=== PATIENT | male | born 1950 | race Caucasian/White ===

== ENCOUNTER 2019-03-13 01:23 | Inpatient (IN) | payer OTHER, MEDICAID ==
[~2019-03-13] VITALS: Ht 177.8 cm; Wt 70.5 kg
--- NOTE | 2019-03-13 00:40 | NUR ---
ADMIT NOTE Patient received from EMT Autumn, [facility] via gurney. No s/s of acute distress noted. Breathing even and unlabored. Patient does complain of 10/10 lower back pain, informed patient will inform MD. Skin warm and dry to touch, no s/s of hypoglycemia noted. Patient's at bedside, Kelly. Patient oriented to room, educated on proper use of call light, patient verbalized understanding and demonstrated back proper use. Bed alarm on. Bed is locked and at lowest position. Will continue to monitor.
[2019-03-13] MEDS ORDERED: MORPHINE 2 MG/ML INJ. SYRINGE IVP PRN (01:30)
[2019-03-13] MEDS ORDERED: FLEETMO RC (01:54)
[2019-03-13] MEDS ORDERED: BISA5TAB10 PO (01:54)
[2019-03-13] MEDS ORDERED: NUT.237L30 PO (01:54)
[2019-03-13] MEDS ORDERED: PHEN57OI23 RC (01:54)
[2019-03-13] MEDS ORDERED: TAMS-11 PO (01:54)
[2019-03-13] MEDS ORDERED: CALC1CAP19 PO (01:54)
[2019-03-13] MEDS ORDERED: TRAM-350 PO (01:54)
[2019-03-13] MEDS ORDERED: GABA300S PO (01:54)
[2019-03-13] MEDS ORDERED: POLY119P15 PO (01:54)
[2019-03-13] MEDS ORDERED: FINA5TAB3 PO (01:54)
[2019-03-13] MEDS ORDERED: MULT-1189 PO (01:54)
[2019-03-13 01:59] VITALS: BP_SYST 141
[2019-03-13] MEDS ORDERED: TRAMADOL HCL PO SCH (02:00)
[2019-03-13] MEDS ORDERED: PHENYLEPH/MINERAL OIL/PETROLAT 45 GM OINT.APPL RC PRN (02:00)
[2019-03-13] MEDS ORDERED: ACETAMINOPHEN PO SCH (02:00)
[2019-03-13] MEDS ORDERED: MINERAL OIL 133 ML ENEMA RC PRN (02:00)
[2019-03-13] MEDS ORDERED: [UNRECOGNIZED DRUG - OTHER] PO SCH (02:00)
[2019-03-13] MEDS: MORPHINE 2 MG/ML INJ. SYRINGE IVP PRN ×2 (02:43→23:16)
--- NOTE | 2019-03-13 02:43 | NUR ---
PAIN Patient complaints of lower back pain with the pain scale of 6/10. Morphine 1mg given through IVP. Patient tolerated well. No signs of respiratory distress noted. Will re assess and continue to monitor.
[2019-03-13] MEDS: D5/0.45 NS 1,000 ML IV SCH ×2 (02:44→21:31)
--- NOTE | 2019-03-13 04:53 | NUR ---
RN ROUNDS Patient is asleep. Family at the bedside. No signs of respiratory distress. Breathing even and unlabored. No signs of discomfort noted. IVF infusing well. Safety precautions in place. Will continue to monitor
[2019-03-13] MEDS: INSULIN REGULAR, HUMAN 100 UNITS/ML, 10 ML VIAL (humuLIN R) SUBCUT PRN ×3 (05:58→17:46)
[2019-03-13 06:33] LABS: MEAN CORPUSCULAR HGB CONC 34 % (32-36)
[2019-03-13 06:44] LABS: INR 0.9 (0.80-1.20); PROTHROMBIN TIME 9.3 SECS (9.5-12.5)
--- NOTE | 2019-03-13 06:51 | NUR ---
CLOSING NOTES Patient is asleep family at the bedside. Patient has no signs of respiratory distress. Breathing even and unlabored. IVF infusing well, patency noted. All needs met throughout the shift. Bed locked and in lowest position. Alarm on. Will endorse to oncoming nurse for continuity of care.
[2019-03-13 07:02] LABS: ALBUMIN 2.4 g/dL (3.4-4.8); CALCIUM 9.2 mg/dL (8.4-11.0); CREATININE 0.64 mg/dL (0.55-1.30); POTASSIUM 4.4 mmol/L (3.5-5.1); TOTAL BILIRUBIN 0.3 mg/dL (0.0-1.0)
--- NOTE | 2019-03-13 07:30 | NUR ---
opening note patient is resting in bed, alert and oriented, visitor at the bedside, educated match up person light system and plan of care, patient verbalized understanding, IV fluids running, tolerating well, fall/safety precautions in place.
[2019-03-13 07:35] LABS: HEMATOCRIT 37.7 % (36-54); HEMOGLOBIN 12.7 g/dL (14.0-18.0); MEAN CORPUSCULAR HEMOGLOBIN 31 pg (27-31); MEAN CORPUSCULAR VOLUME 92 fL (79.0-98.0); PLATELET COUNT (AUTO) 320 K/uL (130-430); RED BLOOD CELL COUNT(AUTO) 4.11 MIL/uL (4.2-6.2); RED CELL DISTRIBUTION WIDTH 15.8 % (9.0-15.0); WHITE BLOOD COUNT (AUTO) 5.9 K/uL (4.8-10.8)
[2019-03-13 08:00] VITALS: BP_SYST 113
[2019-03-13] MEDS ORDERED: NUT TX GLUC INTOLER LAC FR SOY PO SCH (08:00)
[2019-03-13] MEDS ORDERED: FINASTERIDE 5 MG TABLET (PROSCAR) PO SCH (09:00)
[2019-03-13] MEDS ORDERED: CALCIUM CARBONATE/VITAMIN D3 1 TAB TABLET PO SCH (09:00)
[2019-03-13] MEDS ORDERED: POLYETHYLENE GLYCOL 3350, 17 GM/ POWD.PACK PO SCH (09:00)
[2019-03-13] MEDS ORDERED: TAMSULOSIN HCL 0.4 MG CAP PO SCH (09:00)
[2019-03-13] MEDS ORDERED: MULTIVITS,CA,MINERALS/IRON/FA 1 TABLET PO SCH (09:00)
--- NOTE | 2019-03-13 09:40 | NUR ---
medications patient is resting in bed, visitor at the bedside, educated on medication uses and side effects, patient verbalized understanding, and tolerated well, no other needs at this time, fall/safety precautions in place, IV fluids running.
[2019-03-13] MEDS: GABAPENTIN 300 MG CAPSULE PO SCH ×3 (09:41→21:27)
[2019-03-13] MEDS: VANCOMYCIN HCL 1,000 MG in NS 250 ML IV SCH ×2 (11:30→21:30)
--- NOTE | 2019-03-13 11:30 | NUR ---
blood sugar check patient is resting in bed, family in the room, accuchek done and sliding scale needed per MD order, educated on medication uses and side effects, patient verbalized understanding and tolerated well, no other needs at this time, fall/safety precautions in place.
[2019-03-13 11:40] LABS: BASOPHILS % (MANUAL) 0 % (0-2); EOSINOPHILS % (MANUAL) 3 % (0-7); LYMPHOCYTES % (MANUAL) 19 % (20-46); MONOCYTES % (MANUAL) 11 % (0-11)
[2019-03-13 12:30] VITALS: BP_SYST 126
--- NOTE | 2019-03-13 13:31 | NUR ---
ROUNDS patient is resting in bed, eyes closed breathing easy and nonlabored, family in the room, IV fluids running, no other needs addressed at this time, fall/safety precautions in place.
--- NOTE | 2019-03-13 14:23 | NUR ---
scheduled gabapentin educated patient on medication use and side effects, patient verbalized understanding and tolerated well, visitor at the bedside, no other needs at this time, fall/safety precautions in place, IV fluids running.
--- NOTE | 2019-03-13 15:46 | NUR ---
NEURO CONSULT SPOKE TO Realeyes RAYSA WILL NOTIFY DR KENNY FOR NEURO CONSULT.
[2019-03-13] MEDS ORDERED: AMPICILLIN SODIUM 2 GM in NS 100 ML IV ONE (16:00)
--- NOTE | 2019-03-13 16:27 | NUR ---
DC Planning:Informed dr. Damon via phone : there is no MRI service during weekend at [facility]. The md confirmed that the MRI of lumbar sacra spine r/o lumbar epidural abscess can be done on Friday. no need to transfer to higher level of care.-- Kyleigh made aware.
--- NOTE | 2019-03-13 16:32 | NUR ---
ampicillin educated patient on medication use and side effects, patient verbalized understanding and tolerated well, visitor at the bedside, no other needs at this time, fall/safety precautions in place, IV fluids running.
--- NOTE | 2019-03-13 16:40 | NUR ---
patient off unit for CT scan.
--- NOTE | 2019-03-13 17:10 | NUR ---
patient back on unit from CT, in stable condition.
[2019-03-13 17:24] VITALS: BP_SYST 110
--- NOTE | 2019-03-13 18:39 | NUR ---
Paged Dr. Ordonez, Salvador s/w Maggie.
--- NOTE | 2019-03-13 18:58 | NUR ---
closing note patient is resting in bed, alert and oriented, visitor at the bedside, IV fluids running, tolerating well, fall/safety precautions in place, I spoke to Dr Ordonez about the CT results and he wants the patient to get MRI as soon as possible, I let him know that Dr Damon said patient can wait until Friday for it, Dr Ordonez still wants the MRI to be done before MRI and let Dr Damon know about it, Dr Damon had left already, he has been paged to let him know about what Dr Ordonez wants.
--- NOTE | 2019-03-13 19:01 | NUR ---
Paged Dr. Damon, s/w Magdalena
--- NOTE | 2019-03-13 19:40 | NUR ---
Opening Note Received patient awake, resting in bed, no s/sx of distress. Nonlabored breathing on room air. He is eating his dinner and family is visiting at bedside. IVF infusing via RFA IV. Bed is locked in lowest position, side rails up 2x, and bed alarm on. Call light is w/in reach.
--- NOTE | 2019-03-13 19:48 | NUR ---
Dr. Damon S/W Dr. Damon and notified that [facility]'s MRI is not working and will not transfer patient there. He placed order for transfer to [facility] with same orders: he is admitting, patient will be direct admit, m/s.
[2019-03-13 20:00] VITALS: BP_SYST 114
[2019-03-13 20:10] VITALS: BP_SYST 130
[2019-03-13] MEDS ORDERED: BISACODYL 5 MG TABLET.DR (DULCOLAX) PO SCH (21:00)
[2019-03-13] MEDS ORDERED: TERBINAFINE HCL 1%, 24 GM antifungal CREAM TP SCH (21:00)
--- NOTE | 2019-03-13 21:30 | NUR ---
Medications Due medications given. Antibiotic administered as ordered, infusing well and patient tolerating.
--- NOTE | 2019-03-13 22:26 | NUR ---
CALLED : PER LETTER SORTING MACHINE OPERATOR ANAM'S REQUEST DR POLLACK CALLED AND INFORMED HIM THAT PER [facility] LETTER SORTING MACHINE OPERATOR [facility] IS LOOKING FOR AN ADMITTING DR . EVEN THOUGH INFORMED H.S THAT BERNIE KAUR IS ADMITTING PT OVER THERE . REQUESTED MD TO CALL THE LETTER SORTING MACHINE OPERATOR AT [facility] AND NOTIFY THAT HE WILL BE THE ADMITTING DR FOR THIS PT .
--- NOTE | 2019-03-13 22:43 | NUR ---
APPLIANCE LINE ASSEMBLER CALLED AND INFORMED THAT PT WILL BE GOING TO 506 , MED SURG , REPORT TO CALL AT [phone]. NOTIFIED PRIMARY RN .
--- NOTE | 2019-03-13 22:59 | NUR ---
Called [facility] Ambulance dialed [phone], s/w Meryl. ETA [id number]
--- NOTE | 2019-03-13 23:16 | NUR ---
c/o pain Patient reported moderate pain to back and was given morphine for moderate pain as ordered. Will monitor.
--- NOTE | 2019-03-13 23:25 | NUR ---
Called Report to [facility], , and gave SBAR report to GURVINDER Eagle.
--- NOTE | 2019-03-13 23:42 | NUR ---
Report to ambulance / Picture toe [facility] here for patient, report given. Picture of right 4th toe taken.
--- NOTE | 2019-03-13 23:55 | NUR ---
Discharge D/C Patient Ambulance given copy of records,medication reconciliation form and D/C instructions. Exit Care provided. Patient aware of transfer and verbalized understanding. MD discussed with patient the results and treatment provided. Taken by yair for transfer to [facility]. Patient in stable condition, ID band removed. IV catheter saline locked. Patient educated on pain management. All belongings sent with patient. accompanied patient and will travel with patient and crew in ambulance.
[2019-03-14] MEDS ORDERED: AMPICILLIN SODIUM 2 GM in NS 100 ML IV SCH ×2
== END 2019-03-13 23:55 | disposition short-term general hospital (02) | DRG 637 ==
LOC: SMU 01:23
PROVIDERS: ADMIT Internal Medicine; ATTEND Internal Medicine
DX: E11.69 Type 2 diabetes mellitus with other specified complication (principal); E43 Unspecified severe protein-calorie malnutrition; M46.26 Osteomyelitis of vertebra, lumbar region; G95.9 Disease of spinal cord, unspecified; G06.2 Extradural and subdural abscess, unspecified; N40.0 Benign prostatic hyperplasia without lower urinary tract symptoms; M21.372 Foot drop, left foot; G54.1 Lumbosacral plexus disorders; Z79.899 Other long term (current) drug therapy; Z86.61 Personal history of infections of the central nervous system
CPT/HCPCS: 36415; 70450-TC; 72131; 80053; 82962; 85007; 85027; 85610-TC; 85730-TC; 87040-TC; 87081; J0290; J2270; J3370; J7050

== ENCOUNTER 2019-05-30 20:54 | Inpatient (IN) | payer OTHER, MEDICAID ==
[~2019-05-30] VITALS: Ht 177.8 cm; Wt 74.4 kg
[~2019-05-30 20:54] MED LIST: BISA5TAB10 PO; CALC1CAP19 PO; FINA5TAB3 PO; FLEETMO RC; GABA300S PO; MULT-1189 PO; NUT.237L30 PO; PHEN57OI23 RC; POLY119P15 PO; TAMS-11 PO; TRAM-350 PO
--- NOTE | 2019-05-30 20:54 | NUR ---
Placed in room 03 . Placed on manager monitoring, blood pressure machine and pulse oximeter. To gown for exam. Side rails up.
[2019-05-30 21:10] VITALS: BP_SYST 151
--- NOTE | 2019-05-30 21:20 | NUR ---
ANUJ BLS from [facility] in [place] for uncontrolled tremors since 0 this AM. Ativan was given at facility for relief of symptoms, but tremors return. History of seizure disorder, DM2, osteomyelitis, depression, BPH, intraspinal abscess, and strep. Denies pain at this time. Patient is actively having mild tremors. Seizure pads placed with both side rails up for safety, and patient placed on BP cuff, case monitor, and pulse oximetry. Even chest rise and fall with respirations. No acute distress noted. Will continue to monitor.
--- NOTE | 2019-05-30 23:11 | NUR ---
ER Dr. Rolle at bedside examining patient.
[2019-05-30] MEDS ORDERED: NACL 0.9% 1,000 ML IV ONE (23:30)
[2019-05-30] MEDS ORDERED: LORazepam 2 MG/ML VIAL IVP ONE (23:30)
--- NOTE | 2019-05-30 23:30 | NUR ---
# 18 gauge angiocath placed to RAC. Use of asceptic technique. Opsite placed over site. Blood return noted. Blood for lab drawn from site. Flushed with 10 cc of normal saline. No evidence of infiltration noted. Patient tolerated well.
[2019-05-30 23:43] LABS: BASOPHILS # (AUTO) 0.1 K/uL (0.0-0.2); BASOPHILS % (AUTO) 1.5 % (0.0-2.0); EOSINOPHILS # (AUTO) 0.1 K/uL (0.0-0.4); EOSINOPHILS % (AUTO) 1.6 % (0.0-4.0); HEMOGLOBIN 14.2 g/dL (14.0-18.0); LYMPHOCYTES # (AUTO) 1.5 K/uL (1.0-5.5); LYMPHOCYTES % (AUTO) 35.2 % (20.5-51.5); MEAN CORPUSCULAR HEMOGLOBIN 30 pg (27-31); MEAN CORPUSCULAR HGB CONC 34 % (32-36); MEAN CORPUSCULAR VOLUME 87 fL (79.0-98.0); MONOCYTES # (AUTO) 0.4 K/uL (0.0-1.0); MONOCYTES % (AUTO) 10.3 % (1.7-9.3); NEUTROPHILS # (AUTO) 2.1 K/uL (1.8-7.7); NEUTROPHILS % (AUTO) 51.4 % (40.0-70.0); PLATELET COUNT (AUTO) 225 K/uL (130-430); RED BLOOD CELL COUNT(AUTO) 4.83 MIL/uL (4.2-6.2); RED CELL DISTRIBUTION WIDTH 15.9 % (9.0-15.0); WHITE BLOOD COUNT (AUTO) 4.1 K/uL (4.8-10.8)
--- NOTE | 2019-05-30 23:45 | NUR ---
No seizure activity noted or reported, VSS, no further tremors noted s/p administration of ativan.
--- NOTE | 2019-05-30 23:50 | NUR ---
# 16 FR Merino catheter with use of sterile technique. Immediate return of 400 cc clear yellow urine noted. Bedside drainage bag placed below level of bladder. Urine sample collected and sent to lab. Pt tolerated procedure well. Patient unable to ambulate or toilet self.
--- NOTE | 2019-05-31 | NUR ---
Pt resting quietly, even and non-labored respirations, VSS, NAD. Family member at bedside.
[2019-05-31 00:06] LABS: CREATININE 0.83 mg/dL (0.55-1.30); POTASSIUM 4.2 mmol/L (3.5-5.1); TOTAL BILIRUBIN 0.3 mg/dL (0.0-1.0)
--- NOTE | 2019-05-31 00:10 | NUR ---
Pt to radiology via stretcher.
[2019-05-31 00:18] LABS: BILIRUBIN,URINE NEGATIVE (NEGATIVE); BLOOD, URINE 1+ (NEGATIVE); CLARITY/URINE CLEAR (CLEAR); COLOR,URINE YELLOW (YELLOW); GLUCOSE,URINE 3+ (NEGATIVE); KETONES,URINE NEGATIVE (NEGATIVE); LEUKOCYTE ESTERASE ,URINE NEGATIVE (NEGATIVE); NITRITE, URINE NEGATIVE (NEGATIVE); PROTEIN URINE NEGATIVE (NEGATIVE); UROBILINOGEN,URINE 0.2 (0.2-1.0)
[2019-05-31 00:23] LABS: BACTERIA,URINE FEW /HPF (None Seen); WBC,URINE 0-3 /HPF (0-3)
--- NOTE | 2019-05-31 02:00 | NUR ---
Pt resting quietly, even and non-labored respirations, VSS, NAD. Family member at bedside. No needs verbalized at this time.
[2019-05-31] MEDS ORDERED: ASCO500T20 PO (02:28)
[2019-05-31] MEDS ORDERED: GABA-531 PO (02:29)
[2019-05-31] MEDS ORDERED: NUT.237L30 PO (02:30)
[2019-05-31] MEDS ORDERED: INSU100V9 SQ (02:31)
[2019-05-31] MEDS ORDERED: INSU100V7 SUBCUT (02:38)
[2019-05-31] MEDS ORDERED: AZITHROMYCIN 500 MG in NS 250 ML IV ONE (04:00)
[2019-05-31] MEDS ORDERED: NACL 0.9% 1,000 ML IV ONE (04:00)
[2019-05-31] MEDS ORDERED: cefTRIAXone 1 GM in D5W 50 ML IV ONE (04:00)
--- NOTE | 2019-05-31 04:00 | NUR ---
Pt resting quietly, even and non-labored respirations, VSS, NAD. Family member at bedside. No needs verbalized at this time.
[2019-05-31] MEDS ORDERED: AZITHROMYCIN 500 MG/VIAL (ZITHROMAX) IV ONE (04:25)
[2019-05-31] MEDS ORDERED: cefTRIAXone 1 GM VIAL ONE (04:25)
--- NOTE | 2019-05-31 04:34 | NUR ---
Patient will be admitted to care of Barb Stone. Admitted to Med/Surg unit. Will go to room 134B. Belongings list completed. Complete and up to date summary report printed. SBAR report to be given at bedside with opportunity for questions.
--- NOTE | 2019-05-31 04:43 | NUR ---
Specimen for MRSA collected and sent to lab.
--- NOTE | 2019-05-31 04:50 | NUR ---
Admission Note Received patient from ER with diagnosis of possible seizure and to rule out spinal infection. Initial Plan of Care discussed-patient verbalized understanding. Family at bedside. Oriented to room, call light, pain management and safety.
[2019-05-31 05:01] VITALS: BP_SYST 144
--- NOTE | 2019-05-31 06:13 | NUR ---
CONSULT CONSULT CALLED FOR Malina CARLOS I SPOKE WITH SAMI TABARES REASON FOR CONSULT: SPINAL ABSCESS REQUESTING CONSULT: DR. LISA ROBERT
[2019-05-31] MEDS: LORazepam 2 MG/ML VIAL IVP SCH ×4 (06:18→21:10)
[2019-05-31 08:00] VITALS: BP_SYST 153
--- NOTE | 2019-05-31 08:00 | NUR ---
OPENING NOTES Received pt. in bed, no signs of acute respiratory distress observed, no sob. Vitals wnl. no fever. Safety precaution in place. Side rails padded. Call light within reach, bed alarm on, bed at lowest position. Encouraged pt and family at bedside to call for assist and pain meds or any concerns. Will continue to monitor.
--- NOTE | 2019-05-31 11:00 | NUR ---
pt in bed, resting, eyes close. no sob, no resp distress. family at bedside.
[2019-05-31 11:13] VITALS: BP_SYST 132
--- NOTE | 2019-05-31 12:06 | NUR ---
pt given noon time medication. pt's family at bedside. no sob, no distress. no s/s seizures. will cont to monitor.
[2019-05-31 15:11] VITALS: BP_SYST 145
--- NOTE | 2019-05-31 17:52 | NUR ---
pt ambulated to the bathroom assisted by .
--- NOTE | 2019-05-31 18:12 | NUR ---
dr recinos here, seen and spoke with pt and family at bedside. yohannes black assisted with translation.
[2019-05-31 19:00] VITALS: BP_SYST 125
[2019-05-31] MEDS ORDERED: BISACODYL 5 MG TABLET.DR (DULCOLAX) PO PRN (19:00)
[2019-05-31 20:00] VITALS: BP_SYST 135
--- NOTE | 2019-05-31 20:03 | NUR ---
closing notes, endorsed to night nurse, pt has been stable the whole shift, no s/o pain, no seizure. endorsed to night rn that iv access is now leaking and pt needs new iv access.
[2019-05-31] MEDS: GABAPENTIN 300 MG CAPSULE PO SCH (21:10)
[2019-06-01] VITALS: BP_SYST 130
--- NOTE | 2019-06-01 03:32 | NUR ---
Consultation Paged Reason for Consultation: DISKITIS Was consult called: Y Person who was notified: Jessie Consulting Physician: Salvador Rice Strategic Accounts Manager Ordering Physician: Dr. aDmon Face sheet was faxed to [phone]
--- NOTE | 2019-06-01 03:36 | NUR ---
Consultation Paged Reason for Consultation: Jaiden Was consult called: Y Person who was notified: Jessie Consulting Physician: Sai Goetz Government Affairs Director Ordering Physician: Dr. Damon
[2019-06-01 04:00] VITALS: BP_SYST 139
[2019-06-01] MEDS: LORazepam 2 MG/ML VIAL IVP SCH ×4 (06:59→21:32)
[2019-06-01 07:55] VITALS: BP_SYST 129
[2019-06-01] MEDS: TAMSULOSIN HCL 0.4 MG CAP PO SCH (08:37)
[2019-06-01] MEDS: ASCORBIC ACID 500 MG TABLET PO SCH (08:37)
[2019-06-01] MEDS: FINASTERIDE 5 MG TABLET (PROSCAR) PO SCH (08:37)
[2019-06-01] MEDS: POLYETHYLENE GLYCOL 3350, 17 GM/ POWD.PACK PO SCH (08:37)
[2019-06-01] MEDS: GABAPENTIN 300 MG CAPSULE PO SCH ×3 (08:37→21:33)
--- NOTE | 2019-06-01 10:53 | NUR ---
Nutrition Update Alan Scale 18 noted. Pt admitted for seizure, r/o spinal infection. Diet: regular BMI: 23.5 kg/m2 RD to follow per nutrition care standards.
[2019-06-01] MEDS ORDERED: D5W 1,000 ML IV PRN (11:45)
[2019-06-01] MEDS ORDERED: GLUCOSE 15 GM GEL (in 37.5 GM TUBE) PO PRN (11:45)
[2019-06-01] MEDS ORDERED: DEXTROSE 50%-WATER 50 ML DISP.SYRIN IVP PRN (11:45)
[2019-06-01 12:48] VITALS: BP_SYST 127
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
[2019-06-01 16:59] VITALS: BP_SYST 127
[2019-06-01] MEDS: INSULIN REGULAR, HUMAN 100 UNITS/ML, 10 ML VIAL (humuLIN R) SUBCUT PRN (17:10)
--- NOTE | 2019-06-01 19:28 | NUR ---
CLOSING NOTES, PT HAS BEEN STABLE, NO C/O PAIN. ALL MEDS GIVEN. NO SOB, PT HAD MRI OF BRAIN, BLOOD SUGAR CHECKED. ENDORSED TO NIGHT NURSE.
[2019-06-01 20:00] VITALS: BP_SYST 125
--- NOTE | 2019-06-01 20:00 | NUR ---
RECEIVED PT IN BED V/S AND ASSESSMENT DONE SAME STABLE AT BEDSIDE NO DISTRESS NOTED AT THIS TIME,
--- NOTE | 2019-06-02 | NUR ---
PT ASLEEP IN NO DISTRESS AT THIS TIME
[2019-06-02 01:10] VITALS: BP_SYST 136
[2019-06-02 04:00] VITALS: BP_SYST 136
[2019-06-02] MEDS: INSULIN REGULAR, HUMAN 100 UNITS/ML, 10 ML VIAL (humuLIN R) SUBCUT PRN ×4 (05:20→23:48)
[2019-06-02] MEDS: LORazepam 2 MG/ML VIAL IVP SCH ×4 (05:36→23:46)
--- NOTE | 2019-06-02 07:15 | NUR ---
OPENING NOTE PT RESTING IN BED. CHEST RISE AND FALL NOTED. FAMILY AT BEDSIDE. NO ACUTE DISTRESS NOTED. IV LINE INTACT AND PATENT. NO SIGNS OF INFILTRATION. COCHRAN CATHETER INTACT AND PATENT. DRAINING WELL. ALL NEEDS MET. UPDATE PT ON CARE PLAN. BED IN LOWEST AND LOCKED POSITION. CALL LIGHT IN REACH. CONTINUE TO MONITOR.
[2019-06-02 08:00] VITALS: BP_SYST 112
[2019-06-02] MEDS: TAMSULOSIN HCL 0.4 MG CAP PO SCH (09:09)
[2019-06-02] MEDS: FINASTERIDE 5 MG TABLET (PROSCAR) PO SCH (09:09)
[2019-06-02] MEDS: GABAPENTIN 300 MG CAPSULE PO SCH ×3 (09:09→21:03)
[2019-06-02] MEDS: ASCORBIC ACID 500 MG TABLET PO SCH (09:09)
[2019-06-02] MEDS: POLYETHYLENE GLYCOL 3350, 17 GM/ POWD.PACK PO SCH (09:09)
--- NOTE | 2019-06-02 09:09 | NUR ---
MEDS MEDS ADMINISTERED ORDERED. EDUCATION GIVEN. TOLERATED WELL. NO ACUTE DISTRESS NOTED. FAMILY AT BEDSIDE. CALL LIGHT IN REACH. FALL AND ASPIRATION PRECAUTIONS IN PLACE. CONTINUE TO MONITOR.
--- NOTE | 2019-06-02 10:00 | NUR ---
SPOKE TO DR. LINDER SPOKE TO DR. LINDER TO VERIFY ORDERS FROM DR. POLLACK REGARDING MRI/MRA EXAMS.
--- NOTE | 2019-06-02 11:00 | NUR ---
ROUNDS PT AWAKE AND ALERT. NO ACUTE DISTRESS NOTED. FAMILY AT BEDSIDE. ALL NEEDS MET. CALL LIGHT IN REACH. FALL AND ASPIRATION PRECAUTIONS IN PLACE. CONTINUE TO MONITOR.
--- NOTE | 2019-06-02 12:40 | NUR ---
PT OFF FLOOR/ TAKEN TO MRI
--- NOTE | 2019-06-02 13:18 | NUR ---
PT CAME BACK FROM MRI
[2019-06-02 13:24] VITALS: BP_SYST 132
--- NOTE | 2019-06-02 14:00 | NUR ---
ROUNDS PT AWAKE AND ALERT. NO ACUTE DISTRESS NOTED. FAMILY AT BEDSIDE. FALL AND ASPIRATION PRECAUTIONS IN PLACE. ALL NEEDS MET. CALL LIGHT IN REACH. CONTINUE TO MONITOR.
--- NOTE | 2019-06-02 16:32 | NUR ---
MEDS MEDS ADMINISTERED ORDERED PER MD. EDUCATION GIVEN. TOLERATED WELL. FAMILY AT BEDSIDE. NO ACUTE DISTRESS NOTED. ALL NEEDS MET. CALL LIGHT IN REACH. FALL AND ASPIRATION PRECAUTIONS IN PLACE. CONTINUE TO MONITOR.
[2019-06-02 16:55] VITALS: BP_SYST 124
--- NOTE | 2019-06-02 18:08 | NUR ---
ACCUCHECK DONE ACCUCHECK DONE. RESULT 308 MG/DL. TOLERATED WELL. NO ACUTE DISTRESS NOTED. WILL ADMINISTER INSULIN PER PROTOCOL ORDERED PER MD. ALL NEEDS MET. FALL AND ASPIRATION PRECAUTIONS IN PLACE. CALL LIGHT IN REACH. FAMILY AT BEDSIDE. CONTINUE TO MONITOR.
--- NOTE | 2019-06-02 19:00 | NUR ---
CLOSING NOTE PT RESTING IN BED. FAMILY AT BEDSIDE. IV INTACT AND PATENT. NO SIGNS OF INFILTRATION. COCHRAN CATHETER INTACT. DRAINING WELL. TOLERATING WELL. NO ACUTE DISTRESS NOTED. ALL NEEDS MET. CALL LIGHT IN REACH. FALL AND ASPIRATION PRECAUTIONS IN PLACE. WILL ENDORSE TO NOC NURSE.
--- NOTE | 2019-06-02 19:20 | NUR ---
OPENING NOTES RECEIVED PATIENT IN BED RESTING. FAMILY MEMBER AT BEDSIDE. BREATHING UNLABORED ON ROOM AIR. NO C/O PAIN AT THIS TIME. BED IN LOWEST LOCKED POSITION. CALL LIGHT WITH IN REACH.
[2019-06-02 20:59] VITALS: BP_SYST 122
--- NOTE | 2019-06-02 21:03 | NUR ---
MED PASS PATIENT DUE MEDICATION GIVEN. VITAL SIGNS STABLE.
--- NOTE | 2019-06-02 23:49 | NUR ---
MED PASS PATIENT DUE MEDICATIONS GIVEN. VITAL SIGNS STABLE. NO C/O PAIN. FAMILY AT BEDSIDE.
[2019-06-03 02:11] VITALS: BP_SYST 122
--- NOTE | 2019-06-03 03:06 | NUR ---
ROUNDS PATIENT RESTING IN BED. NO DISTRESS NOTED. AT BEDSIDE. CALL LIGHT WITH IN REACH.
[2019-06-03 05:44] VITALS: BP_SYST 119
[2019-06-03] MEDS: LORazepam 2 MG/ML VIAL IVP SCH ×2 (05:49→12:52)
[2019-06-03] MEDS: INSULIN REGULAR, HUMAN 100 UNITS/ML, 10 ML VIAL (humuLIN R) SUBCUT PRN ×2 (05:51→13:10)
--- NOTE | 2019-06-03 06:10 | NUR ---
IV LINE IV LINE LEAKING. NEW IV LINE INSERTED TO LEFT HAND GAUGE #22 WITH GOOD BLOOD RETURN. OLD IV LINE REMOVED. PRESSURE DRESSING APPLIED.
--- NOTE | 2019-06-03 06:25 | NUR ---
CLOSING NOTES PATIENT RESTING IN BED. AT BEDSIDE. BREATHING UNLABORED ON ROOM AIR. PATIENT NEEDS ATTENDED. BED IN LOWEST LOCKED POSITION WITH ALARM ON. CALL LIGHT WITH IN REACH.
--- NOTE | 2019-06-03 07:15 | NUR ---
OPENING NOTE PT RESTING IN BED. CHEST RISE AND FALL NOTED. NONLABORED BREATHING. FAMILY AT BEDSIDE. IV INTACT AND PATENT. NO INFILTRATION NOTED. COCHRAN CATHETER INTACT AND PATENT. DRAINING WELL. NO ACUTE DISTRESS NOTED. ALL NEEDS MET. CALL LIGHT IN REACH. FALL AND ASPIRATION PRECAUTIONS IN PLACE. CONTINUE TO MONITOR.
--- NOTE | 2019-06-03 09:19 | NUR ---
Discharge Planning: DCP faxed pt referral to [facility] (f [phone] p [phone]) DCP to follow up Addendum: 06/03/19 at 1036 by Tanna Monteiro DP DCP spoke to Alannah at [facility] ( [phone] p [phone]) patient to go to RM 29A send after 7pm. Addendum: 06/03/19 at 1043 by Tanna Monteiro DP [facility] (f [phone] p [phone]), [facility] ([phone]) 6:30pm P/U. Patient packet taken to nurse station.
[2019-06-03] MEDS: FINASTERIDE 5 MG TABLET (PROSCAR) PO SCH (09:29)
[2019-06-03] MEDS: ASCORBIC ACID 500 MG TABLET PO SCH (09:29)
[2019-06-03] MEDS: GABAPENTIN 300 MG CAPSULE PO SCH ×2 (09:29→15:27)
[2019-06-03] MEDS: POLYETHYLENE GLYCOL 3350, 17 GM/ POWD.PACK PO SCH (09:29)
[2019-06-03] MEDS: TAMSULOSIN HCL 0.4 MG CAP PO SCH (09:30)
--- NOTE | 2019-06-03 09:30 | NUR ---
ROUTINE MEDS ROUTINE MEDS ADMINISTERED ORDERED PER MD. EDUCATION GIVEN. TOLERATED WELL. NO ACUTE DISTRESS NOTED. FALL AND ASPIRATION PRECAUTIONS IN PLACE. FAMILY AT BEDSIDE. ALL NEEDS MET. CALL LIGHT IN REACH. CONTINUE TO MONITOR.
--- NOTE | 2019-06-03 11:30 | NUR ---
ROUNDS PT RESTING IN BED. CHEST RISE AND FALL NOTED. FAMILY AT BEDSIDE. NO ACUTE DISTRESS NOTED. FALL AND ASPIRATION PRECAUTIONS IN PLACE. ALL NEEDS MET. CALL LIGHT IN REACH. CONTINUE TO MONITOR.
--- NOTE | 2019-06-03 12:52 | NUR ---
ROUTINE MEDS ROUTINE MEDS ADMINISTERED ORDERED PER MD. EDUCATION GIVEN ON MEDS. TOLERATED WELL. FAMILY AT BEDSIDE. NO ACUTE DISTRESS NOTED. ALL NEEDS MET. CALL LIGHT IN REACH. FALL AND ASPIRATION PRECAUTIONS IN PLACE. CONTINUE TO MONITOR.
[2019-06-03 13:24] VITALS: BP_SYST 135
--- NOTE | 2019-06-03 14:45 | NUR ---
ROUNDS PT AWAKE AND ALERT. WATCHING TV. FAMILY AT BEDSIDE. NONLABORED BREATHING. NO ACUTE DISTRESS NOTED. FALL AND ASPIRATION PRECAUTIONS IN PLACE. ALL NEEDS MET. CALL LIGHT IN REACH. CONTINUE TO MONITOR.
--- NOTE | 2019-06-03 15:27 | NUR ---
ROUTINE MEDS ROUTINE MEDS ADMINISTERED ORDERED PER MD. EDUCATION GIVEN. TOLERATED WELL. FAMILY AT BEDSIDE. NO ACUTE DISTRESS NOTED. HOB ELEVATED. ALL NEEDS MET. CALL LIGHT IN REACH. FALL AND ASPIRATION PRECAUTIONS IN PLACE. CONTINUE TO MONITOR.
[2019-06-03 15:32] VITALS: BP_SYST 143
--- NOTE | 2019-06-03 16:26 | NUR ---
GAVE REPORT TO GURVINDER MOCTEZUMA FROM [facility] FOR TRANSFER.
[2019-06-03 16:30] VITALS: BP_SYST 143
--- NOTE | 2019-06-03 16:45 | NUR ---
COCHRAN DISCONTINUED SPOKE TO DR. POLLACK TO DISCONTINUE COCHRAN. ORDERS VERIFIED, CLARIFIED, AND CARRIED OUT. COCHRAN REMOVED. TOLERATED WELL. NO ACUTE DISTRESS NOTED.
--- NOTE | 2019-06-03 17:40 | NUR ---
NOTE PATIENT IN BED STABLE. INCONTINENCE CARE PROVIDED. KEPT CLEAN AND DRY. NO SEIZURE ACTIVITY NOTED THROUGHOUT SHIFT. SKIN WARM AND DRY TO TOUCH. BED IN LOW AND LOCKED POSITION. PADDED SIDERAIL UPX3. BED ALARM ON. CALL LIGHT IN REACH. FAMILY AT BEDSIDE. CONT TO MONITOR. AWAITING FOR EMT FOR PICKUP FOR TRANSFER.
--- NOTE | 2019-06-03 18:00 | NUR ---
PT TRANSFERRED Report given to Lucero HOLLINS at [facility]. Transfer packet with Transfer Orders and Medication Reconciliation form given to EMT with report. Exitcare provided. [facility] ID band removed, replaced with ID band with pt's name and . IV catheter removed, intact and dressing applied, no active bleeding. All belongings sent with patient. Patient left floor via gurney escorted by EMT in no distress.
== END 2019-06-03 18:00 | DRG 91 ==
LOC: SED 20:54 → SMU 05-31 04:00
PROVIDERS: ADMIT Internal Medicine Infectious Disease; ATTEND Internal Medicine Infectious Disease
DX: G25.3 Myoclonus (principal); J18.1 Lobar pneumonia, unspecified organism; N39.0 Urinary tract infection, site not specified; G82.20 Paraplegia, unspecified; M21.372 Foot drop, left foot; E11.9 Type 2 diabetes mellitus without complications; N40.0 Benign prostatic hyperplasia without lower urinary tract symptoms; Z79.4 Long term (current) use of insulin; Z79.899 Other long term (current) drug therapy
CPT/HCPCS: 36415; 70450-TC; 70551; 71045; 72141; 80053; 81000-TC; 82962; 83605; 84484; 85025; 87040-TC; 87081; 93005; 95816; 96361; 96365; 96367; 96375; 99285; J0456; J0696; J1815; J2060; J7030